=== PATIENT | male | born 1960 ===

== ENCOUNTER 2025-01-28 11:41 | Emergency (ER) | payer MEDICARE, OTHER, SELFPAY ==
--- OUTSIDE RECORDS SUMMARY | 2025-01-26 13:00 | XMS_ITS | Encounter Summary ---
Author Organization [facility] Address [address] [place] [address] Care Team Providers Care Associate Professor Of Radiology Name Role Phone Jabari Lemon MD Primary Care Provider [phone] Encounter Details Date Type Department Care Team (Latest Contact Info) Description 01/26/2025 1:00 PM BUNDLE BREAKER - 01/26/2025 11:59 PM BUNDLE BREAKER Hospital Encounter [facility] [place] [address] [facility] [address] [place] [phone] Blossom Sarmiento, [facility] [address] [facility] [address] [place] [phone] Discharge Disposition: Home or Self Care Social History Tobacco Use Types Packs/Day Years Used Date Smoking Tobacco: Former Cigarettes Smokeless Tobacco: Never Alcohol Use Standard Drinks/Week Comments No 0 (1 standard drink = 0.6 oz pur e alcohol) Sex and Gender Information Value Date Recorded Sex Assigned at Not on file Legal Sex Male 11:50 PM BUNDLE BREAKER Gender Identity Not on file Sexual Orientation Not on file documented as of this encounter Medications at Time of Discharge ALPRAZolam (XANAX) 0.5 mg tabletIndications :RUSSEL (generalized anxiety disorder) TAKE 1 TABLET BY MOUTH THREE TIMES DAILY NEEDED FOR ANXIETY 90 Tablet 5 01/06/2025 citalopram (CeleXA) 20 mg tabletIndications :RUSSEL (generalized anxiety disorder) Take 1.5 Tablets (30 mg) by mouth daily. 135 Tablet 3 04/28/2024 triamcinolone acetonide (KENALOG) 0.5 % CreamIndications: Psoriasis Apply to affected area 2 times daily. 15 Gram 2 07/31/2021 Calcitriol 3 mcg/gram Ointment Apply twice daily to affected areas 100 Gram 5 11/24/2020 triamcinolone acetonide (KENALOG) 0.1 % OintmentIndicatio ns:Psoriasis APPLY TO AFFECTED AREA TWO TIMES DAILY 80 Gram 10/12/2020 nystatin-triamcin olone (MYCOLOG-II) 100,000-0.1 unit/g-% CreamIndications: Intertrigo APPLY TO AFFECTED AREA TWICE DAILY 30 Gram 1 09/30/2020 loratadine-pseudo ephedrine (Claritin-D 12 Hour) 5-120 mg Extended Release 12 hour tablet Take 1 Tablet by mouth 2 times daily as needed for Allergies or Congestion. 30 Tablet 1 01/26/2020 silver nitrate applicators 75-25 % Stick Apply to granulation tissue on L great toe daily as needed. 50 Stick 1 09/04/2019 cyclobenzaprine (FLEXERIL) 5 mg TabletIndications :Neck pain Take 1 Tablet (5 mg) by mouth daily at bedtime for 3 days. 3 Tablet 01/26/2025 5 documented as of this encounter Plan of Treatment Upcoming Encounters Date Type Department Care Team (Late st Contact Info) Description 08/26/2025 8:00 AM CDT Office Visit [facility] Medicine [place] [address] [phone] Jabari Lemon MD [address] [phone] documented as of this encounter Visit Diagnoses Not on filedocumented in this encounter Care Teams Associate Professor Of Radiology Relationship Specialty Start Date End Date Jabari Lemon MD [address] [phone] PCP - General Family Practice 12/26/15 documented as of this encounter
--- OUTSIDE RECORDS SUMMARY | 2025-01-26 13:03 | XMS_ITS | Encounter Summary ---
Author Organization [employer] Address [address] [place] [address] Care Team Providers Care Brush Hand Name Role Phone Jabari Lemon MD Primary Care Provider [phone] Encounter Details Date Type Department Care Team (Latest Contact Info) Description 01/26/2025 1:03 PM MANAGER DAIRY - 01/26/2025 11:59 PM MANAGER DAIRY Hospital Encounter [facility] [address] [facility] 60 [place] [phone] Blossom Sarmiento, [facility] 104 [facility] 60 [place] [phone] Arrived Discharge Disposition: Home or Self Care Social History Tobacco Use Types Packs/Day Years Used Date Smoking Tobacco: Former Cigarettes Smokeless Tobacco: Never Alcohol Use Standard Drinks/Week Comments No 0 (1 standard drink = 0.6 oz pur e alcohol) Sex and Gender Information Value Date Recorded Sex Assigned at Not on file Legal Sex Male 11:50 PM MANAGER DAIRY Gender Identity Not on file Sexual Orientation [...] bedtime for 3 days. 3 Tablet 01/26/2025 documented as of this encounter Plan of Treatment Upcoming Encounters Date Type Department Care Team (Late st Contact Info) Description 08/26/2025 8:00 AM CDT Office Visit [address] [phone] Jabari Lemon MD [address] [phone] documented as of this encounter Procedures Procedure Name Priority Date/Time Associated Diagnosis Comments XR CERVICAL SPINE 2 OR 3 VIEWS Routine 01/26/2025 1:34 PM MANAGER DAIRY Neck pain documented in this encounter Results * XR CERVICAL SPINE 2 OR 3 VIEWS (01/26/2025 1:34 PM MANAGER DAIRY) Anatomical Region Laterality Modality Spine Computed Radiogr aphy 01/26/2025 1:34 PM MANAGER DAIRY Impressions 01/27/2025 7:45 AM MANAGER DAIRY IMPRESSION: No radiographically evident cervical spine fractures. Mild retrolisthesis of C4 on C5. Cervical spine degenerative changes with multilevel mild disc space narrowing. Remainder unremarkable. Narrative 01/27/2025 7:45 AM MANAGER DAIRY Exam: Radiographs: XR CERVICAL SPINE 2 OR 3 VIEWS Indication: Neck pain Comparison: None Procedure Note Nas Brown MD - 01/27/2025 Exam: Radiographs: XR CERVICAL SPINE 2 OR 3 VIEWS Indication: Neck pain Comparison: None IMPRESSION: No radiographically evident cervical spine fractures. Mild retrolisthesis of C4 on C5. Cervical spine degenerative changes with multilevel mild disc space narrowing. Remainder unremarkable. Blossom Sarmiento MAIL CARRIERS SUPERVISOR DIAGNOSTIC IMAGING ORDERAB LES Final Result documented in this encounter Visit Diagnoses Diagnosis Neck pain Cervicalgia documented in this encounter Care Teams Brush Hand Relationship Specialty Start Date End Date Jabari Lemon MD [address] [facility] 60 [place] [phone] PCP - General Family Practice 12/26/15 documented as of this encounter
--- OUTSIDE RECORDS SUMMARY | 2025-01-26 14:00 | XMS_ITS | Encounter Summary ---
Author Organization [facility] Address [address] [place] [address] Care Team Providers Care Universal Grinder Tool Name Role Phone Jabari Lemon MD Primary Care Provider [phone] Reason for Visit * Reason Comments Neck Pain Encounter Details Date Type Department Care Team (Late st Contact Info) Description 01/26/2025 2:00 PM GEOLOGICAL SCIENCE TEACHER Office Visit [facility] Medicine [place] [address] [phone] Blossom Sarmiento, [facility] [address] [phone] Neck pain (Primary Dx) Social History Tobacco Use Types Packs/Day Years Used Date Smoking Tobacco: Former Cigarettes Smokeless Tobacco: Never Alcohol Use Standard Drinks/Week Comments No 0 (1 standard drink = 0.6 oz pur e alcohol) Sex and Gender Information Value Date Recorded Sex Assigned at Not on file Legal Sex Male 11:50 PM GEOLOGICAL SCIENCE TEACHER Gender Identity Not on file Sexual Orientation Not on file documented as of this encounter Last Filed Vital Signs Vital Sign Reading Time Taken Comments Blood Pressure 110/62 01/26/2025 12:40 PM GEOLOGICAL SCIENCE TEACHER Pulse 72 01/26/2025 12:40 PM GEOLOGICAL SCIENCE TEACHER Temperature 36.1 C (96.9 F) 01/26/2025 12:40 PM GEOLOGICAL SCIENCE TEACHER Respiratory Rate - - Oxygen Saturation 98% 01/26/2025 12:40 PM GEOLOGICAL SCIENCE TEACHER Inhaled Oxygen Concentration - - Weight 84.9 kg (187 lb 3.2 oz) 01/26/2025 12:40 PM GEOLOGICAL SCIENCE TEACHER Height 175.3 cm (5' 9 ) 01/26/2025 12:40 PM GEOLOGICAL SCIENCE TEACHER Body Mass Index 27.64 01/26/2025 12:40 PM GEOLOGICAL SCIENCE TEACHER documented in this encounter Progress Notes * Guillermina Blossom Jessa, CAD OPERATOR - 01/26/2025 12:55 PM CST [facility] 01/26/2025 Subjective: Aníbal Prakash is a 64 y.o. male who comes today for evaluation of No chief complaint on file. . History of Present Illness The patient presents for evaluation of neck pain. He has been experiencing severe bilateral neck pain for several days, (has had for months, but has worsened the past few days) which is particularly intense upon awakening in the morning. The pain isdescribed as similar to a migraine but localized in the neck. Additionally, he reports intermittentpressure behind his eyes and extreme fatigue over the past week. He has also experienced occasional chills but has not monitored his temperature at home. He reports no numbness, tingling, nausea, vomiting, new rashes, or changes in vision. He does report muscle weakness, which he attributes to his current condition. Attempts to alleviate the pain through neck stretching exercises, as recommended by his chiropractor, have only exacerbated the discomfort. He has not undergone any cervical spine imaging in the past. He has been managing the pain with ibuprofen, with the most recent dose taken anhour prior to the visit. Review of Systems Constitutional: Negative for chills, fever and malaise/fatigue. HENT: Negative for congestion, ear pain and sore throat. Eyes: Negative for blurred vision. Respiratory: Negative for cough and shortness of breath. Cardiovascular: Negative for chest pain. Gastrointestinal: Negative for abdominal pain, constipation, diarrhea, nausea and vomiting. Genitourinary: Negative for dysuria and urgency. Musculoskeletal: Positive for neck pain. Negative for joint pain and myalgias. Neurological: Negative for dizziness, tingling, tremors, sensory change, focal weakness, weakness and headaches. All other systems reviewed and are negative. Objective: Vitals: 01/26/25 1240 Temp: 96.9 ??F (36.1 ??C) Pulse: 72 BP: 110/62 SpO2: 98% Physical Exam Constitutional: General: He is not in acute distress. Appearance: Normal appearance. He is not ill-appearing or toxic-appearing. HENT: Head: Normocephalic and atraumatic. Right Ear: Tympanic membrane normal. Left Ear: Tympanic membrane normal. Nose: Nose normal. Mouth/Throat: Mouth: Mucous membranes are moist. Eyes: Extraocular Movements: Extraocular movements intact. Pupils: Pupils are equal, round, and reactive to light. Cardiovascular: Rate and Rhythm: Normal rate and regular rhythm. Pulses: Normal pulses. Heart sounds: Normal heart sounds. Pulmonary: Effort: Pulmonary effort is normal. No respiratory distress. Breath sounds: Normal breath sounds. No decreased air movement. No decreased breath sounds, wheezing, rhonchi or rales. Abdominal: General: Abdomen is flat. Palpations: Abdomen is soft. Tenderness: There is no abdominal tenderness. There is no guarding. Musculoskeletal: Cervical back: Neck supple. No edema, erythema, signs of trauma, rigidity or crepitus. Pain with movement and muscular tenderness present. Decreased range of motion. Skin: General: Skin is warm and dry. Neurological: General: No focal deficit present. Mental Status: He is alert and oriented to person, place, and time. Psychiatric: Mood and Affect: Mood normal. Behavior: Behavior normal. Past medical history, surgical history and social history reviewed. Past Medical History: Diagnosis Date Anxiety RUSSEL (generalized anxiety disorder) Tobacco abuse Procedures Assessment/Plan: ICD-10-CM ICD-9-CM 1. Neck pain M54.2 723.1 CBC WITH DIFFERENTIAL COMPREHENSIVE METABOLIC PANEL C-REACTIVE PROTEIN XR CERVICAL SPINE 2 OR 3 VIEWS ketorolac (TORADOL) injection 30 mg cyclobenzaprine (FLEXERIL) 5 mg Tablet Assessment & Plan 1. Cervicalgia: - The patient reports neck pain, particularly severe in the mornings, with associated pressure behind the eyes and worsening with movement. - Ibuprofen provides some relief, but the pain persists and worsens with stretching. - Blood work and a cervical spine x-ray are ordered to rule out emergent conditions. A Toradol injection will be administered today, and a muscle relaxer will be prescribed for nightly use for three nights. - The patient is instructed to monitor his temperature at home and report any fevers, worsening symptoms, rash, vomiting, or other concerning signs. If symptoms do not improve, further diagnostic workup will be pursued. Blossom SUAREZ This note was automatically generated by a Generative AI technology (Dragon [employer]ient e[employer]), reviewed, edited, and finalized by Blossom Sarmiento. The author of this note, patient (or authorized customer operations representative), and all other persons present consent to the audio recording of this visit for charting documentation purposes. OGICAL SCIENCE TEACHER documented in this encounter Plan of Treatment Upcoming Encounters Date Type Department Care Team (Late st Contact Info) Description 08/26/2025 8:00 AM CDT Office Visit [facility] [address] [phone] Jabari Lemon MD [address] [phone] documented as of this encounter Results * XR CERVICAL SPINE 2 OR 3 VIEWS (01/26/2025 1:34 PM GEOLOGICAL SCIENCE TEACHER) Anatomical Region Laterality Modality Spine Computed Radiogr aphy 01/26/2025 1:34 PM GEOLOGICAL SCIENCE TEACHER Impressions 01/27/2025 7:45 AM GEOLOGICAL SCIENCE TEACHER IMPRESSION: No radiographically evident cervical spine fractures. Mild retrolisthesis of C4 on C5. Cervical spine degenerative changes with multilevel mild disc space narrowing. Remainder unremarkable. Narrative 01/27/2025 7:45 AM GEOLOGICAL SCIENCE TEACHER Exam: Radiographs: XR CERVICAL SPINE 2 OR 3 VIEWS Indication: Neck pain Comparison: None Procedure Note Nas Brown MD - 01/27/2025 Exam: Radiographs: XR CERVICAL SPINE 2 OR 3 VIEWS Indication: Neck pain Comparison: None IMPRESSION: No radiographically evident cervical spine fractures. Mild retrolisthesis of C4 on C5. Cervical spine degenerative changes with multilevel mild disc space narrowing. Remainder unremarkable. Blossom GANDHI DIAGNOSTIC IMAGING ORDERAB LES Final Result documented in this encounter Visit Diagnoses Diagnosis Neck pain- Primary Cervicalgia Neck pain Cervicalgia documented in this encounter Administered Medications Inactive Administered Medications - up to 3 most recent administrations Medication Order MAR Action Action Date Dose Rate Site ketorolac (TORADOL) injection 30 mg 30 mg, IM, ONE TIME ONLY, 1 dose, On 11/4/25 at 1300, RoutineIndications:Neck pain Given 01/26/2025 1:00 PM GEOLOGICAL SCIENCE TEACHER 30 mg Ventrogluteal, Left documented in this encounter Care Teams Universal Grinder Tool Relationship Specialty Start Date End Date Jabari Lemon MD [address] [phone] PCP - General Family Practice 12/26/15 documented as of this encounter
[2025-01-28 11:46] VITALS: BP 132/73; PULSE 93; RESP 17; TEMP 36.7; O2SAT 98; BMI 25.8
--- OUTSIDE RECORDS SUMMARY | 2025-01-28 11:50 | XMS_ITS | Clinical Summary ---
Author Organization [facility] Address 104 [facility] 60 [place] [address] Care Team Providers Care Engineering Research Manager Name Role Phone Jabari Lemon MD Primary Care Provider [phone] [phone] Allergies No known active allergies Medications triamcinolone acetonide (KENALOG) 0.1 % OintmentIndication s:Psoriasis APPLY TO AFFECTED AREA TWO TIMES DAILY 80 Gram 1 03/19/20 18 Active nystatin-triamcino lone (MYCOLOG-II) 100,000-0.1 unit/g-% CreamIndications:I ntertrigo Apply to affected area 2 times daily. 30 Gram 1 05/14/19 20 Active silver nitrate applicators 75-25 % Stick Apply to granulation tissue on L great toe daily as needed. 50 Stick 1 09/04/19 20 Active loratadine-pseudoe phedrine (Claritin-D 12 Hour) 5-120 mg Extended Release 12 hour tablet Take 1 Tablet by mouth 2 times daily as needed for Allergies or Congestion. 30 Tablet 1 01/26/20 20 Active citalopram (CeleXA) 20 mg tabletIndications: RUSSEL (generalized anxiety disorder) Take 1.5 Tablets (30 mg) by mouth daily. 135 Tablet 4 05/05/19 21 Active ALPRAZolam (XANAX) 0.5 mg tabletIndications: RUSSEL (generalized anxiety disorder) Take 1 Tablet (0.5 mg) by mouth 3 times daily as needed for Anxiety. 90 Tablet 5 05/05/19 21 Active omeprazole (PriLOSEC) 40 mg Capsule, Delayed Release(E.C.)Indic ations:Gastroesoph ageal reflux disease without esophagitis Take 1 Capsule (40 mg) by mouth daily. 90 Capsule 4 05/05/19 21 Active lovastatin (MEVACOR) 20 mg tabletIndications: Mixed hyperlipidemia Take 1 Tablet (20 mg) by mouth daily with supper. 30 Tablet 11 08/14/19 21 Active Active Problems Problem Noted Date Diagnosed Date Gastroesophageal reflux disease without esophagi tis 05/05/2020 Mixed hyperlipidemia 05/14/2019 History of esophageal stricture 04/12/2016 Oropharyngeal dysphagia 04/12/2016 History of lipoma 04/04/2016 Pharyngoesophageal dysphagia 01/20/2016 Psoriasis 12/28/2013 RUSSEL (generalized anxiety disorder) 10/29/2008 Resolved Problems Problem Noted Date Diagnosed Date Resolved Date Screen for colon cancer 02/26/201704/25 Mass of subcutaneous tissue of back 03/07/2016 03/27/2016 Overview (03/07/2016): growing. Tobacco abuse 10/29/2008 05/05/2020 Overview (09/16/2012): 1 ppd (09/04) Family History Medical History Relation Name Comments Other Father ALS Unknown Maternal Grandfather Unknown Maternal Grandmother Healthy Mother Unknown Paternal Grandfather Unknown Paternal Grandmother Breast Cancer Neg Hx Cancer Neg Hx Colon Cancer Neg Hx Diabetes Neg Hx Heart Disease Neg Hx Relation Name Status Comments Father Maternal Grandfather Maternal Grandmother Mother Paternal Grandfather Paternal Grandmother Social History Tobacco Use Types Packs/Day Years Used Date Smoking Tobacco: Former Cigarettes 1 30 Smokeless Tobacco: Never Tobacco Cessation:Counseling Given: No Alcohol Use Standard Drinks/Week Comments No 0 (1 standard drink = 0.6 oz pur e alcohol) Denies Sex and Gender Information Value Date Recorded Sex Assigned at Not on file Legal Sex Male 7:23 AM PROFESSOR OF FINE ART Gender Identity Not on file Sexual Orientation Not on file Occupation Industry Job Start Date Job End Date Not on file Not on file Not on file Not on file Last Filed Vital Signs Vital Sign Reading Time Taken Comments Blood Pressure 118/68 05/05/2020 2:54 PM PROFESSOR OF FINE ART Pulse 85 05/05/2020 2:54 PM PROFESSOR OF FINE ART Temperature 36.3 C (97.3 F) 05/05/2020 2:54 PM PROFESSOR OF FINE ART Respiratory Rate 16 05/05/2020 2:54 PM PROFESSOR OF FINE ART Oxygen Saturation 99% 05/05/2020 2:54 PM PROFESSOR OF FINE ART Inhaled Oxygen Concentration - - Weight 91.2 kg (201 lb) 05/05/2020 2:54 PM PROFESSOR OF FINE ART Height 177.8 cm (5' 10 ) 05/05/2020 2:54 PM PROFESSOR OF FINE ART Body Mass Index 28.84 05/05/2020 2:54 PM PROFESSOR OF FINE ART Plan of Treatment Health Maintenance Due Date Last Done Comments Pre-Diabetes and Diabetes Screening 1960 DTAP/TDAP/TD VACCINES (1 - Tdap) 07/25/1978 FIT-DNA Q 3 years 07/25/2004 FIT/FOBT Q 1 year 07/25/2004 Flex Sig/CT Colonography Q 5 years 07/25/2004 PNEUMOCOCCAL VACCINE 50+ YEA RS (1 of 1 - PCV) 07/25/2009 ZOSTER VACCINE (1 of 2) 07/25/2009 INFLUENZA VACCINE (#1) 2024 05/05/2020 COLORECTAL SCREENING 02/26/2027 02/26/2017 Colorectal Cancer Screening 02/26/2027 RSV VACCINE (60+ or ) (1 - 1-dose 75+ series) 07/25/2034 Preventative Visit- Commercial Completed 04/28/2024 , 10/01/2022 Insurance [employer] [facility] [place] [id number] Advance Directives For more information, please contact: [phone] * Full Code (Latest Code Status on File) Date Activated Date Inactivated Comments 02/26/2017 1:00 PM 02/26/2017 4:23 PM * Full Code Date Activated Date Inactivated Comments 03/27/2016 10:58 AM 03/27/2016 2:56 PM Care Teams Engineering Research Manager Relationship Specialty Start Date End Date Jabari Lemon MD [address] [phone] PCP - General Family Practice 12/26/15
--- OUTSIDE RECORDS SUMMARY | 2025-01-28 11:50 | XMS_ITS | Clinical Summary ---
Author Organization [facility] Address [address] [facility] [address] [place] [address] Care Team Providers Care Field Crop Farmer Name Role Phone Jabari Lemon MD Primary Care Provider [phone] Allergies No known active allergies Medications loratadine-pse udoephedrine (Claritin-D 12 Hour) 5-120 mg Extended Release 12 hour tablet Take 1 Tablet by mouth 2 times daily as needed for Allergies or Congestion. 30 Tablet 1 01/26/20 20 Active silver nitrate applicators 75-25 % Stick Apply to granulation tissue on L great toe daily as needed. 50 Stick 1 09/04/19 20 Active nystatin-triam cinolone (MYCOLOG-II) 100,000-0.1 unit/g-% CreamIndicatio ns:Intertrigo APPLY TO AFFECTED AREA TWICE DAILY 30 Gram 1 10/01/19 21 Active triamcinolone acetonide (KENALOG) 0.1 % OintmentIndica tions:Psoriasi s APPLY TO AFFECTED AREA TWO TIMES DAILY 80 Gram 10/13/19 21 Active Calcitriol 3 mcg/gram Ointment Apply twice daily to affected areas 100 Gram 5 11/25/19 21 Active triamcinolone acetonide (KENALOG) 0.5 % CreamIndicatio ns:Psoriasis Apply to affected area 2 times daily. 15 Gram 2 08/01/19 22 Active citalopram (CeleXA) 20 mg tabletIndicati ons:RUSSEL (generalized anxiety disorder) Take 1.5 Tablets (30 mg) by mouth daily. 135 Tablet 3 04/28/19 25 Active ALPRAZolam (XANAX) 0.5 mg tabletIndicati ons:RUSSEL (generalized anxiety disorder) TAKE 1 TABLET BY MOUTH THREE TIMES DAILY NEEDED FOR ANXIETY 90 Tablet 5 01/07/20 25 Active cyclobenzaprin e (FLEXERIL) 5 mg TabletIndicati ons:Neck pain Take 1 Tablet (5 mg) by mouth daily at bedtime for 3 days. 3 Tablet 01/28/20 25 025 Active ALPRAZolam (XANAX) 0.5 mg tabletIndicati ons:RUSSEL (generalized anxiety disorder) Take 1 Tablet (0.5 mg) by mouth 3 times daily as needed for Anxiety. 90 Tablet 5 06/09/19 25 025 Discontinued cyclobenzaprin e (FLEXERIL) 5 mg TabletIndicati ons:Neck pain Take 1 Tablet (5 mg) by mouth daily at bedtime for 3 days. 3 Tablet 01/27/20 25 025 Discontinued(R ora) Hospital, Clinic, or Other Facility Administered Medication Ordered Dose Route Frequency Start Date End Date Status ketorolac (TORADOL) injection 30 mgIndications:Neck pain 30 mg IM ONE TIME ONLY 01/26/2025 5 Ended Active Problems Problem Noted Date Diagnosed Date Essential tremor 04/18/2023 Gastroesophageal reflux disease without esophagi tis 05/05/2020 Mixed hyperlipidemia 05/14/2019 Oropharyngeal dysphagia 04/12/2016 History of esophageal stricture 04/12/2016 History of lipoma 04/04/2016 Pharyngoesophageal dysphagia 01/20/2016 Psoriasis 12/28/2013 RUSSEL (generalized anxiety disorder) 10/29/2008 Resolved Problems Problem Noted Date Diagnosed Date Resolved Date Screen for colon cancer 02/26/201704/25 Mass of subcutaneous tissue of back 03/07/2016 03/27/2016 Overview (07/20/2020): growing. Tobacco abuse 10/29/2008 05/05/2020 Overview (07/20/2020): 1 ppd (09/04) Encounters Date Type Department Care Team Description 01/27/[address] [address] Blossom Sarmiento FNP Medication Refill 01/27/2025 Results Follow-Up [facility] [address] [place] [phone] Blossom Sarmiento, TECHNICIAN TERMINAL AND REPEATER XR CERVICAL SPINE 2 OR 3 VIEWS 01/27/2025 Results Follow-Up [facility] [address] [place] [phone] Blossom Sarmiento, TECHNICIAN TERMINAL AND REPEATER CBC WITH DIFFERENTIAL, COMPREHENSIVE METABOLIC PANEL, C-REACTIVE PROTEIN, MANUAL DIFFERENTIAL 01/26/2025 2:00 PM CRYPTOGRAPHIC MACHINE OPERATOR Office Visit [address] [place] [phone] Blossom Sarmiento, OKSANA Neck pain (Primary Dx) 01/26/2025 1:03 PM CRYPTOGRAPHIC MACHINE OPERATOR - 01/26/2025 11:59 PM CRYPTOGRAPHIC MACHINE OPERATOR Hospital Encounter [facility] [address] [place] [phone] Blossom Sarmiento FNP Arrived Discharge Disposition: Home or Self Care 01/26/2025 1:00 PM CRYPTOGRAPHIC MACHINE OPERATOR - 01/26/2025 11:59 PM CRYPTOGRAPHIC MACHINE OPERATOR Hospital Encounter [facility] [place] [address] [place] [phone] Blossom Sarmiento, TECHNICIAN TERMINAL AND REPEATER Discharge Disposition: Home or Self Care 01/26/2025 Lab Requisition [facility] [address] [place] [address] Blossom Sarmiento, TECHNICIAN TERMINAL AND REPEATER Cervicalgia 01/05/2025 Refill [facility] [address] [place] [phone] Jabari Lemon MD RUSSEL (generalized anxiety disorder) 12/23/2024 Results Follow-Up [address] [place] [phone] Farnaz Sky, TECHNICIAN TERMINAL AND REPEATER PSA, LIPID PANEL, COMPREHENSIVE METABOLIC PANEL, CBC WITH DIFFERENTIAL 12/08/2024 External Device Data [facility] ABSTRACTION Provider, Abstract 11/30/[address] [address] Jabari Lemon MD Referral (GI Referral/) 11/18/2024 Orders Only [address] [address] Jabari Lemon MD History of esophageal stricture (Primary Dx); Gastroesophageal reflux disease without esophagitis 11/18/2024 Orders Only [address] [address] Jabari Lemon MD 11/17/[address] [address] Jabari Lemon MD Referral 11/05/[address] [address] Jabari Lemon MD Referral; Patient Communication from Last 3 Months Family History Medical History Relation Name Comments [...] on file Legal Sex Male 11:50 PM CRYPTOGRAPHIC MACHINE OPERATOR Gender Identity Not on file Sexual Orientation Not on file Last Filed Vital Signs Vital Sign Reading Time Taken Comments Blood Pressure 110/62 01/26/2025 12:40 PM CRYPTOGRAPHIC MACHINE OPERATOR Pulse 72 01/26/2025 12:40 PM CRYPTOGRAPHIC MACHINE OPERATOR Temperature 36.1 C (96.9 F) 01/26/2025 12:40 PM CRYPTOGRAPHIC MACHINE OPERATOR Respiratory Rate 18 08/24/2024 3:11 PM CDT Oxygen Saturation 98% 01/26/2025 12:40 PM CRYPTOGRAPHIC MACHINE OPERATOR Inhaled Oxygen Concentration - - Weight 84.9 kg (187 lb 3.2 oz) 01/26/2025 12:40 PM CRYPTOGRAPHIC MACHINE OPERATOR Height 175.3 cm (5' 9 ) 01/26/2025 12:40 PM CRYPTOGRAPHIC MACHINE OPERATOR Body Mass Index 27.64 01/26/2025 12:40 PM CRYPTOGRAPHIC MACHINE OPERATOR Plan of Treatment Upcoming Encounters Date Type Department Care Team (Late st Contact Info) Description 08/26/2025 8:00 AM CDT Office Visit [facility] [address] [phone] Jabari Lemon MD [address] [address] Health Maintenance Due Date Last Done Comments Pre-Diabetes and Diabetes Screening 1960 FIT/ DNA Q 3 YEARS (AUTO ORDER) 07/25/1977 FIT/FOBT Q 1 YEAR (AUTO ORDER) 07/25/1977 FLEX SIG/CT COLONOGRAPHY Q 5 YEARS (AUTO ORDER) 07/25/1977 DTAP/TDAP/TD VACCINES (1 - Tdap) 07/25/1978 FIT-DNA Q 3 years 07/25/2004 FIT/FOBT Q 1 year 07/25/2004 Flex Sig/CT Colonography Q 5 years 07/25/2004 PNEUMOCOCCAL VACCINE 50+ YEA RS (1 of 1 - PCV) 07/25/2009 ZOSTER VACCINE (1 of 2) 07/25/2009 Abdominal Aortic Aneurysm (AAA) Screening 07/25/2024 INFLUENZA VACCINE (#1) 2024 04/28/2024, 2020 Traditional Medicare (ACO) A nnual Wellness Visit 08/25/2025 08/24/2024 COLORECTAL CANCER SCREENING (AUTO ORDER) 02/26/2027 02/26/2017 COLORECTAL SCREENING 02/26/2027 02/26/2017 Colorectal Cancer Screening (AUTO ORDER) 02/26/2027 Colorectal Cancer Screening 02/26/2027 RSV VACCINE (60+ or ) (1 - 1-dose 75+ series) 07/25/2034 Procedures Procedure Name Priority Date/Time Associated Diagnosis Comments XR CERVICAL SPINE 2 OR 3 VIEWS Routine 01/26/2025 1:34 PM CRYPTOGRAPHIC MACHINE OPERATOR Neck pain DIFFERENTIAL, MANUAL Stat 01/26/2025 1:15 PM CRYPTOGRAPHIC MACHINE OPERATOR Cervicalgia C-REACTIVE PROTEIN Stat 01/26/2025 1: 15 PM CRYPTOGRAPHIC MACHINE OPERATOR Cervicalgia COMPREHENSIVE METABOLIC PANEL Stat 01/26/2025 1:15 PM CRYPTOGRAPHIC MACHINE OPERATOR Cervicalgia CBC WITH DIFFERENTIAL Stat 01/26/2025 1:15 PM CRYPTOGRAPHIC MACHINE OPERATOR Cervicalgia CBC WITH DIFFERENTIAL Routine 12/07/2024 10:51 AM CDT Mixed hyperlipidemia COMPREHENSIVE METABOLIC PANEL Routine 12/07/2024 10:51 AM CDT Mixed hyperlipidemia LIPID PANEL Routine 12/07/2024 10:51 AM CDT Mixed hyperlipidemia PSA Routine 12/07/2024 10:51 AM CDT Elevated PSA from Last 3 Months Results * XR CERVICAL SPINE 2 OR 3 VIEWS (01/26/2025 1:34 PM CRYPTOGRAPHIC MACHINE OPERATOR) Anatomical Region Laterality Modality Spine Computed Radiogr aphy 01/26/2025 1:34 PM CRYPTOGRAPHIC MACHINE OPERATOR Impressions 01/27/2025 7:45 AM CRYPTOGRAPHIC MACHINE OPERATOR IMPRESSION: No radiographically evident cervical spine fractures. Mild retrolisthesis of C4 on C5. Cervical spine degenerative changes with multilevel mild disc space narrowing. Remainder unremarkable. Narrative 01/27/2025 7:45 AM CRYPTOGRAPHIC MACHINE OPERATOR Exam: Radiographs: XR CERVICAL SPINE 2 OR 3 VIEWS Indication: Neck pain Comparison: None Procedure Note Nas Brown MD - 01/27/2025 Exam: Radiographs: XR CERVICAL SPINE 2 OR 3 VIEWS Indication: Neck pain Comparison: None IMPRESSION: No radiographically evident cervical spine fractures. Mild retrolisthesis of C4 on C5. Cervical spine degenerative changes with multilevel mild disc space narrowing. Remainder unremarkable. Blossom Sarmiento TECHNICIAN TERMINAL AND REPEATER DIAGNOSTIC IMAGING ORDERAB LES Final Result * MANUAL DIFFERENTIAL (01/26/2025 1:15 PM CRYPTOGRAPHIC MACHINE OPERATOR) PLATELET EST. Consistent w Count 01/26/2025 1:43 PM [facility] RBC MORPHOLOGY Normal 01/26/2025 1:43 PM [facility] Blood 01/26/2025 1:15 PM CRYPTOGRAPHIC MACHINE OPERATOR 01/26/2025 1:28 PM CRYPTOGRAPHIC MACHINE OPERATOR [facility] - 01/26/2025 1:43 PM CRYPTOGRAPHIC MACHINE OPERATOR Smear reviewed. Findings consistent with automated results. Blossom Sarmiento [facility] HEMATOLOGY ORDERABLES COM Final Result [facility] CLIA # [id number] [address] [place] [address] * (ABNORMAL) CBC WITH DIFFERENTIAL (01/26/2025 1:15 PM CRYPTOGRAPHIC MACHINE OPERATOR) Only the most recent of2 resultswithin the time period is included. [facility] WBC 3.6(L) 4.2 - 9.1 K/uL 01/26/2025 1:43 PM [facility] RBC 4.86 4.63 - 6.08 M/uL 01/26/2025 1:43 PM [facility] HEMOGLOBIN 13.8 13.7 - 17.5 g/dL 01/26/2025 1:43 PM [facility] HEMATOCRIT 40.1 40.1 - 51.0 % 01/26/2025 1:43 PM [facility] MCV 82.5 79.0 - 92.2 fL 01/26/2025 1:43 PM [facility] MCH 28.4 25.7 - 32.2 pg 01/26/2025 1:43 PM [facility] MCHC 34.4 32.3 - 36.5 g/dL 01/26/2025 1:43 PM [facility] RDW 12.7 11.0 - 14.5 % 01/26/2025 1:43 PM [facility] RDW-STDEV 38.6 36.9 - 56.9 fL 01/26/2025 1:43 PM [facility] PLATELETS 145 130 - 400 K/uL 01/26/2025 1:43 PM [facility] MPV 10.4 10.0 - 14.8 fL 01/26/2025 1:43 PM [facility] NEUTROPHILS 43 34 - 68 % 01/26/2025 1:43 PM [facility] LYMPHOCYTES 38 22 - 53 % 01/26/2025 1:43 PM [facility] MONOCYTES 13(H) 5 - 12 % 01/26/2025 1:43 PM [facility] EOSINOPHILS 0(L) 1 - 7 % 01/26/2025 1:43 PM [facility] BASOPHILS 1 0 - 1 % 01/26/2025 1:43 PM [facility] IMMATURE GRANULOCYTES 4 % 01/26/2025 1:43 PM [facility] NEUTROPHIL ABSOLUTE 1.57(L) 1.78 - 5.38 K/uL 01/26/2025 1:43 PM [facility] LYMPHOCYTE ABSOLUTE 1.38 1.20 - 3.40 K/uL 01/26/2025 1:43 PM [facility] MONOCYTE ABSOLUTE 0.48 0.30 - 0.82 K/uL 01/26/2025 1:43 PM [facility] EOSINOPHIL ABSOLUTE 0.01(L) 0.04 - 0.54 K/uL 01/26/2025 1:43 PM [facility] BASOPHILS ABSOLUTE 0.05 0.01 - 0.08 K/uL 01/26/2025 1:43 PM [facility] IMMATURE GRANULOCYTES ABSOLUTE 0.15 K/uL 01/26/2025 1:43 PM [facility] Blood 01/26/2025 1:15 PM CRYPTOGRAPHIC MACHINE OPERATOR 01/26/2025 1:28 PM CRYPTOGRAPHIC MACHINE OPERATOR us Blossom Sarmiento TECHNICIAN TERMINAL AND REPEATER HEMATOLOGY ORDERABLES Sonal bueno [id number] [address] [place] [address] * (ABNORMAL) C-REACTIVE PROTEIN (01/26/2025 1:15 PM CRYPTOGRAPHIC MACHINE OPERATOR) Pathologist [facility] CRP 46.4(H) <5.0 mg/L 01/26/2025 1:51 PM [facility] Blood 01/26/2025 1:15 PM CRYPTOGRAPHIC MACHINE OPERATOR 01/26/2025 1:28 PM CRYPTOGRAPHIC MACHINE OPERATOR Blossom Sarmiento TECHNICIAN TERMINAL AND REPEATER CHEMISTRY ORDERABLES Final Result [facility] CLIA # [id number] [address] [place] [address] * (ABNORMAL) COMPREHENSIVE METABOLIC PANEL (01/26/2025 1:15 PM CRYPTOGRAPHIC MACHINE OPERATOR) Only the most recent of2 resultswithin the time period is included. Pathologist [facility] SODIUM 133(L) 136 - 145 mmol/L 01/26/2025 1:51 PM [facility] POTASSIUM 3.9 3.5 - 5.1 mmol/L 01/26/2025 1:51 PM [facility] CHLORIDE 96(L) 98 - 107 mmol/L 01/26/2025 1:51 PM [facility] CO2 28 22 - 29 mmol/L 01/26/2025 1:51 PM [facility] CALCIUM 8.6(L) 8.8 - 10.2 mg/dL 01/26/2025 1:51 PM [facility] BUN 11 8 - 23 mg/dL 01/26/2025 1:51 PM [facility] CREATININE 1.17 0.67 - 1.17 mg/dL 01/26/2025 1:51 PM [facility] GLUCOSE 105(H) 74 - 99 mg/dL 01/26/2025 1:51 PM [facility] TOTAL PROTEIN 6.3(L) 6.6 - 8.7 g/dL 01/26/2025 1:51 PM [facility] ALBUMIN 3.9 3.5 - 5.2 g/dL 01/26/2025 1:51 PM [facility] BILIRUBIN TOTAL 0.7 0.0 - 1.2 mg/dL 01/26/2025 1:51 PM [facility] ALKALINE PHOSPHATASE 102 40 - 129 U/L 01/26/2025 1:51 PM [facility] AST 39 0 - 50 U/L 01/26/2025 1:51 PM [facility] ALT 42 0 - 50 U/L 01/26/2025 1:51 PM [facility] GFR >60 >=60 mL/min/1.7 3 sq meter 01/26/2025 1:51 PM [facility] Comment:eGFR calculated with 2020 CKD-EPI equation. Vegetarian diet, extremely high or low muscle mass, and may affect results. Cystatin C with Glomerular Filtration Rate is a suitable alternative for these patients. ANION GAP 9 5 - 20 mmol/L 01/26/2025 1:51 PM [facility] Blood 01/26/2025 1:15 PM CRYPTOGRAPHIC MACHINE OPERATOR 01/26/2025 1:28 PM CRYPTOGRAPHIC MACHINE OPERATOR Blossom Sarmiento TECHNICIAN TERMINAL AND REPEATER CHEMISTRY ORDERABLES Final Result [facility] CLIA # [id number] [address] [place] [address] * PSA (12/07/2024 10:51 AM CDT) PSA 3.24 < OR = 4.00 ng/mL [facility] Comment: The total PSA value from this assay system is standardized against the WHO standard. The test result will be approximately 20% lower when compared to the equimolar-standardized total PSA ([facility] [place]). Comparison of serial PSA results should be interpreted with this fact in mind. This test was performed using the Siemens chemiluminescent method. Values obtained from different assay methods cannot be used interchangeably. PSA levels, regardless of value, should not be interpreted as absolute evidence of the presence or absence of disease. Test Performed at: [facility] [address] [address] [address] Haleigh Esqueda MD Blood 12/07/2024 10:5 1 AM CDT 12/08/2024 3:01 AM CDT Jabari Lemon MD CHEMISTRY ORDERABLES Sonal l Result [facility] [phone] [facility] [address] [facility] [place] [address] * (ABNORMAL) LIPID PANEL (12/07/2024 10:51 AM CDT) CHOLESTEROL 230(H) <200 mg/dL [facility] HDL 53 > OR = 40 mg/dL [facility] TRIGLYCERIDE 98 <150 mg/dL [facility] LDL CALCULATED 156(H) mg/dL (calc) [facility] Comment: Reference range: <100 Desirable range <100 mg/dL for primary prevention; <70 mg/dL for patients with CHD or diabetic patients with > or = 2 CHD risk factors. LDL-C is now calculated using the Wilber-Hartley calculation, which is a validated novel method providing better accuracy than the Friedewald equation in the estimation of LDL-C. Wilber SS et al. MÓNICA. 2013;310(19): 5141-6824 (http://education.Yext.[employer]/faq/VIB696) CHOL/HDL RATIO 4.3 <5.0 (calc) [facility] NON-HDL CHOLESTEROL 177(H) <130 mg/dL (calc) [facility] Comment: For patients with diabetes plus 1 major ASCVD risk factor, treating to a non-HDL-C goal of <100 mg/dL (LDL-C of <70 mg/dL) is considered a therapeutic option. Test Performed at: [facility] [address] [facility] [place] [address] Haleigh Esqueda MD Blood 12/07/2024 10:5 1 AM CDT 12/08/2024 3:01 AM CDT Jabari Lemon MD CHEMISTRY ORDERABLES Sonal l Result [facility] [phone] [facility] [address] [address], [place] [address] from Last 3 Months Insurance [employer] [facility] SUPP MEDICARE PART A AND B Care Teams Field Crop Farmer Relationship Specialty Start Date End Date Jabari Lemon MD [address] [facility] [address] [place] [address] PCP - General Family Practice 12/26/15
--- OUTSIDE RECORDS SUMMARY | 2025-01-28 11:50 | XMS_ITS | Encounter Summary ---
Author Organization [facility] Address [address] [place] [address] Care Team Providers Care Residential Gas Heat Technician Name Role Phone Jabari Lemon MD Primary Care Provider [phone] Encounter Details Date Type Department Care Team (Late st Contact Info) Description 01/27/2025 Results Follow-Up [address] [address] Blossom Sarmiento FNP [address] [place] [phone] XR CERVICAL SPINE 2 OR 3 VIEWS Social History Tobacco Use Types Packs/Day Years Used Date Smoking Tobacco: Former Cigarettes Smokeless Tobacco: Never Alcohol Use Standard Drinks/Week Comments No 0 (1 standard drink = 0.6 oz pur e alcohol) Sex and Gender Information Value Date Recorded Sex Assigned at Not on file Legal Sex Male 11:50 PM IT AUDITOR Gender Identity Not on file Sexual Orientation Not on file documented as of this encounter Plan of Treatment Upcoming Encounters Date Type Department Care Team (Late st Contact Info) Description 08/26/2025 8:00 AM CDT Office Visit [address] [address] Jabari Lemon MD [address] [place] [phone] documented as of this encounter Visit Diagnoses Not on filedocumented in this encounter Care Teams Residential Gas Heat Technician Relationship Specialty Start Date End Date Jabari Lemon MD [address] [phone] PCP - General Family Practice 12/26/15 documented as of this encounter
--- OUTSIDE RECORDS SUMMARY | 2025-01-28 11:50 | XMS_ITS | Encounter Summary ---
Author Organization [facility] Address [address] [place] [address] Care Team Providers Care Hide Curer Name Role Phone Jabari Lemon MD Primary Care Provider [phone] Encounter Details Date Type Department Care Team (Late Contact Info) Description 01/26/2025 Lab Requisition [facility] Services [place] [address] [phone] Blossom Sarmiento FNP [address] [address] Cervicalgia Social History Tobacco Use Types Packs/Day Years Used Date Smoking Tobacco: Former Cigarettes Smokeless Tobacco: Never Alcohol Use Standard Drinks/Week Comments No 0 (1 standard drink = 0.6 oz pur e alcohol) Sex and Gender Information Value Date Recorded Sex Assigned at Not on file Legal Sex Male 11:50 PM VIDEO COORDINATOR Gender Identity Not on file Sexual Orientation Not on file documented as of this encounter Plan of Treatment Upcoming Encounters Date Type Department Care Team (Late st Contact Info) Description 08/26/2025 8:00 AM CDT Office Visit [facility] Medicine [place] [address] [address] Jabari Lemon MD [address] [phone] documented as of this encounter Procedures Procedure Name Priority Date/Time Associated Diagnosis Comments DIFFERENTIAL, MANUAL Stat 01/26/2025 1:15 PM VIDEO COORDINATOR Cervicalgia CBC WITH DIFFERENTIAL Stat 01/26/2025 1:15 PM VIDEO COORDINATOR Cervicalgia C-REACTIVE PROTEIN Stat 01/26/2025 1: 15 PM VIDEO COORDINATOR Cervicalgia COMPREHENSIVE METABOLIC PANEL Stat 01/26/2025 1:15 PM VIDEO COORDINATOR Cervicalgia documented in this encounter Results * MANUAL DIFFERENTIAL (01/26/2025 1:15 PM VIDEO COORDINATOR) [facility] PLATELET EST. Consistent w Count 01/26/2025 1:43 PM VIDEO COORDINATOR [facility] RBC MORPHOLOGY Normal 01/26/2025 1:43 PM VIDEO COORDINATOR [facility] Blood 01/26/2025 1:15 PM VIDEO COORDINATOR 01/26/2025 1:28 PM VIDEO COORDINATOR Narrative [facility] - 01/26/2025 1:43 PM VIDEO COORDINATOR Smear reviewed. Findings consistent with automated results. us Blossom Sarmiento [facility] HEMATOLOGY ORDERABLES COM Final Result Performing Organization Address City/[facility]/ZIP Co de Phone Number [facility] CLIA # [id number] [address] [place] [address] * (ABNORMAL) C-REACTIVE PROTEIN (01/26/2025 1:15 PM VIDEO COORDINATOR) [facility] CRP 46.4(H) <5.0 mg/L 01/26/2025 1:51 PM VIDEO COORDINATOR [facility] Blood 01/26/2025 1:15 PM VIDEO COORDINATOR 01/26/2025 1:28 PM VIDEO COORDINATOR us Blossom Sarmiento [facility] CHEMISTRY ORDERABLES Final Result Performing Organization Address City/[facility]/ZIP Co de Phone Number [facility] CLIA # [id number] [address] [place] [address] * (ABNORMAL) COMPREHENSIVE METABOLIC PANEL (01/26/2025 1:15 PM VIDEO COORDINATOR) SODIUM 133(L) 136 - 145 mmol/L 01/26/2025 1:51 PM [facility] POTASSIUM 3.9 3.5 - 5.1 mmol/L 01/26/2025 1:51 PM [facility] CHLORIDE 96(L) 98 - 107 mmol/L 01/26/2025 1:51 PM [facility] CO2 28 22 - 29 mmol/L 01/26/2025 1:51 PM [facility] CALCIUM 8.6(L) 8.8 - 10.2 mg/dL 01/26/2025 1:51 PM [facility] BUN 11 8 - 23 mg/dL 01/26/2025 1:51 PM [facility] CREATININE 1.17 0.67 - 1.17 mg/dL 01/26/2025 1:51 PM [facility] GLUCOSE 105(H) 74 - 99 mg/dL 01/26/2025 1:51 PM [facility] TOTAL PROTEIN 6.3(L) 6.6 - 8.7 g/dL 01/26/2025 1:51 PM [facility] ALBUMIN 3.9 3.5 - 5.2 g/dL 01/26/2025 1:51 PM [facility] BILIRUBIN TOTAL 0.7 0.0 - 1.2 mg/dL 01/26/2025 1:51 PM [facility] ALKALINE PHOSPHATASE 102 40 - 129 U/L 01/26/2025 1:51 PM [facility] AST 39 0 - 50 U/L 01/26/2025 1:51 PM [facility] ALT 42 0 - 50 U/L 01/26/2025 1:51 PM [facility] GFR >60 >=60 mL/min/1.7 3 sq meter 01/26/2025 1:51 PM [facility] Comment:eGFR calculated with 2020 CKD-EPI equation. Vegetarian diet, extremely high or low muscle mass, and may affect results. Cystatin C with Glomerular Filtration Rate is a suitable alternative for these patients. ANION GAP 9 5 - 20 mmol/L 01/26/2025 1:51 PM [facility] Blood 01/26/2025 1:15 PM VIDEO COORDINATOR 01/26/2025 1:28 PM VIDEO COORDINATOR Blossom Sarmiento [facility] CHEMISTRY ORDERABLES Final Result [facility] CLIA # [id number] [address] [place] [address] * (ABNORMAL) CBC WITH DIFFERENTIAL (01/26/2025 1:15 PM VIDEO COORDINATOR) WBC 3.6(L) 4.2 - 9.1 K/uL 01/26/2025 1:43 PM [facility] RBC 4.86 4.63 - 6.08 M/uL 01/26/2025 1:43 PM [facility] HEMOGLOBIN 13.8 13.7 - 17.5 g/dL 01/26/2025 1:43 PM [facility] HEMATOCRIT 40.1 40.1 - 51.0 % 01/26/2025 1:43 PM [facility] MCV 82.5 79.0 - 92.2 fL 01/26/2025 1:43 PM [facility] MCH 28.4 25.7 - 32.2 pg 01/26/2025 1:43 PM [facility] MCHC 34.4 32.3 - 36.5 g/dL 01/26/2025 1:43 PM [facility] RDW 12.7 11.0 - 14.5 % 01/26/2025 1:43 PM [facility] RDW-STDEV 38.6 36.9 - 56.9 fL 01/26/2025 1:43 PM [facility] PLATELETS 145 130 - 400 K/uL 01/26/2025 1:43 PM [facility] MPV 10.4 10.0 - 14.8 fL 01/26/2025 1:43 PM [facility] NEUTROPHILS 43 34 - 68 % 01/26/2025 1:43 PM [facility] LYMPHOCYTES 38 22 - 53 % 01/26/2025 1:43 PM [facility] MONOCYTES 13(H) 5 - 12 % 01/26/2025 1:43 PM [facility] EOSINOPHILS 0(L) 1 - 7 % 01/26/2025 1:43 PM [facility] BASOPHILS 1 0 - 1 % 01/26/2025 1:43 PM [facility] IMMATURE GRANULOCYTES 4 % 01/26/2025 1:43 PM [facility] NEUTROPHIL ABSOLUTE 1.57(L) 1.78 - 5.38 K/uL 01/26/2025 1:43 PM [facility] LYMPHOCYTE ABSOLUTE 1.38 1.20 - 3.40 K/uL 01/26/2025 1:43 PM [facility] MONOCYTE ABSOLUTE 0.48 0.30 - 0.82 K/uL 01/26/2025 1:43 PM [facility] EOSINOPHIL ABSOLUTE 0.01(L) 0.04 - 0.54 K/uL 01/26/2025 1:43 PM [facility] BASOPHILS ABSOLUTE 0.05 0.01 - 0.08 K/uL 01/26/2025 1:43 PM [facility] IMMATURE GRANULOCYTES ABSOLUTE 0.15 K/uL 01/26/2025 1:43 PM [facility] Blood 01/26/2025 1:15 PM VIDEO COORDINATOR 01/26/2025 1:28 PM VIDEO COORDINATOR Blossom Sarmiento [facility] HEMATOLOGY ORDERABLES Sonal l Result [facility] CLIA # [id number] [address] [address] documented in this encounter Visit Diagnoses Diagnosis Cervicalgia documented in this encounter Care Teams Hide Curer Relationship Specialty Start Date End Date Jabari Lemon MD [address] [phone] PCP - General Family Practice 12/26/15 documented as of this encounter
--- OUTSIDE RECORDS SUMMARY | 2025-01-28 11:50 | XMS_ITS | Encounter Summary ---
Author Organization [facility] Address [address] [place] [address] Care Team Providers Care Installation Helper Name Role Phone Jabari Lemon MD Primary Care Provider [phone] Reason for Visit * Reason Onset Date Comments Results 01/27/2025 Patient Communication Encounter Details Date Type Department Care Team (Latest Contact Info) Description 01/27/2025 Results Follow-Up [facility] Medicine [place] [address] [phone] Blossom Sarmiento, [facility] [address] [phone] CBC WITH DIFFERENTIAL, COMPREHENSIVE METABOLIC PANEL, C-REACTIVE PROTEIN, MANUAL DIFFERENTIAL Social History Tobacco Use Types Packs/Day Years Used Date Smoking Tobacco: Former Cigarettes Smokeless Tobacco: Never Alcohol Use Standard Drinks/Week Comments No 0 (1 standard drink = 0.6 oz pur e alcohol) Sex and Gender Information Value Date Recorded Sex Assigned at Not on file Legal Sex Male 11:50 PM MANAGER MAC Gender Identity Not on file Sexual Orientation Not on file documented as of this encounter Miscellaneous Notes * Telephone Encounter - Farnaz Sanders RN - 01/27/2025 11:52 AM MANAGER MAC 01/27/2025 11:52 AM Returned call and spoke with patient. Advised patient per provider: He needs to go to the ER based on his labs and his worsening symptoms. Voiced understanding. Farnaz MONACO GER MAC * Telephone Encounter - Skylar Duong - 01/27/2025 9:53 AM CST Copied from [facility] #[id number]. Topic: CPA Information Request >> Jan 27, 2025 9:48 AM Skylar Dahl wrote: Caller is returning phone call from clinic. Caller Name: PT Patient/Caregiver Callback Number: Telephone Information: Patient Has Additional Questions Are the credentials of the caregiver who talked to the patient data abstractor? No Call Notes: Patient/Caller requires a call back to discuss Called stating the pain is much worse and has a fever , is hot and cold and is asking for a call back , he is asking for some medication to help with a possible infection GER MAC * Telephone Encounter - Farnaz Sanders RN - 01/27/2025 9:17 AM MANAGER MAC 01/27/2025 9:17 AM No answer. Left voice mail/message that communication regarding results can be accessed via [employer] . No need to return call unless specific questions. If patient/caregiver calls back, contact center may tell caller Labs do show some evidence of moderate inflammation. White count is slightly low as is calcium and sodium. These are all a bit vague. Is the pain any better or worse today? Xray did show slipped vertebra and degenerative changes. Farnaz MONACO GER MAC * Telephone Encounter - Farnaz Sanders RN - 01/27/2025 9:16 AM MANAGER MAC ----- Message from Blossom Sarmiento sent at 01/27/2025 9:04 AM MANAGER MAC ----- Labs do show some evidence of moderate inflammation. White count is slightly low as is calcium and sodium. These are all a bit vague. Is the pain any better or worse today? Xray did show slipped vertebra and degenerative changes. ----- Message ----- From: [facility], Background Sent: 01/26/2025 1:43 PM MANAGER MAC To: OKSANA Cardozo GER MAC documented in this encounter Plan of Treatment Upcoming Encounters Date Type Department Care Team (Late st Contact Info) Description 08/26/2025 8:00 AM CDT Office Visit [facility] [address] [phone] Jabari Lemon MD [address] [phone] documented as of this encounter Visit Diagnoses Not on filedocumented in this encounter Care Teams Installation Helper Relationship Specialty Start Date End Date Jabari Lemon MD [address] [phone] PCP - General Family Practice 12/26/15 documented as of this encounter
--- OUTSIDE RECORDS SUMMARY | 2025-01-28 11:50 | XMS_ITS | Encounter Summary ---
Author Organization [facility] Address [address] [place] [address] Care Team Providers Care Exercise Scientist Name Role Phone Jabari Lemon MD Primary Care Provider [phone] [phone] Reason for Referral * Medication Prior Authorization - Pending Review Specialty Diagnoses / Procedures Referred By Harsh moore Referred To Contact Diagnoses Neck pain Blossom Sarmiento FNP [address] [place] [phone] Phone: tel: fax: Referral ID Status Reason Start Date Expiration Date V isits Requested Visits Authorized [id number] Pending Review 1 1 R Reason for Visit * Reason Comments Medication Refill Encounter Details Date Type Department Care Team (Late st Contact Info) Description 01/27/2025 Telephone [facility] [address] [phone] Blossom Sarmiento FNP [address] [place] [phone] Medication Refill Social History Tobacco Use Types Packs/Day Years Used Date Smoking Tobacco: Former Cigarettes Smokeless Tobacco: Never Alcohol Use Standard Drinks/Week Comments No 0 (1 standard drink = 0.6 oz pur e alcohol) Sex and Gender Information Value Date Recorded Sex Assigned at Not on file Legal Sex Male 11:50 PM BALER Gender Identity Not on file Sexual Orientation Not on file documented as of this encounter Miscellaneous Notes * Telephone Encounter - Farnaz Sanders RN - 01/27/2025 3:31 PM BALER 01/27/2025 3:31 PM Returned call and spoke with patient. Patient states that the Rx sent in on 01/26 did not go to thepharmacy. It looks like it was waiting on a prior authorization from the insurance. Patient is wanting to just pay hopkins. Resent prescription for Flexeril 3 tablets to [facility]. Farnaz RN R * Telephone Encounter - Keisha Garcia - 01/27/2025 3:25 PM CST Copied from [facility] #[id number]. Topic: Medication Request >> Jan 27, 2025 3:20 PM Keisha Salinas wrote: Caller Name: Aníbal Callback Number: [phone] Medication (Ask patient/caregiver to spell if possible): cyclobenzaprine (FLEXERIL) 5 mg Tablet Note: All medication prescriptions can be requested using one [facility] Preferred Pharmacy: [facility] [address] [place] [address] [place] [address] [address] Call Notes: Caller is checking the status of a prescription request sent on date 01/26/25. Patient said his portal says this has not been sent and he checked with pharmacy and they don't have. Patientis requesting Farnaz to resend this today. Review the medication to determine if prescription has been sent to the pharmacy. Has the prescription been sent to the pharmacy? No, less than 48 hours since prescription request sent to clinic but patient requesting a message be sent Is there an encounter open? No R documented in this encounter Plan of Treatment Upcoming Encounters Date Type Department Care Team (Late st Contact Info) Description 08/26/2025 8:00 AM CDT Office Visit [facility] [place] [address] [address] Jabari Lemon MD [address] [phone] documented as of this encounter Visit Diagnoses Diagnosis Neck pain Cervicalgia documented in this encounter Care Teams Exercise Scientist Relationship Specialty Start Date End Date Jabari Lemon MD [address] [phone] PCP - General Family Practice 12/26/15 documented as of this encounter
--- NOTE | 2025-01-28 11:53 | W.ED.RECABL ---
HPI - Recheck/Abnormal Lab/Rx General: Chief Complaint: Recheck/Abnormal Lab/Rx Stated Complaint: Neck Pain going down to shoulders Time Seen by Provider: 01/28/25 11:53 History of Present Illness: 64-year-old man who presents emergency room with complaint of labs being abnormal. He is unsure which it was he thinks maybe his CRP was elevated. He says his doctor told him to go to the emergency room. He says for several weeks now has had some generalized weakness and muscle aches in his neck and his right shoulder and side. No documented fevers but he does say he has had chills and sweats. He did take some ibuprofen today Related Data Home Medications ?Medication ?Instructions ?Recorded ?Confirmed alprazolam 0.5 mg tablet 0.5 mg PO TID PRN Anxiety 01/28/25 01/28/25 citalopram 20 mg tablet 20 mg PO DAILY 01/28/25 01/28/25 dorzolamide 22.3 mg-timolol 6.8 1 drp ophthalmic (eye) BID 01/28/25 01/28/25 mg/mL eye drops ibuprofen 200 mg tablet 800 mg PO Q6H PRN Pain 01/28/25 01/28/25 Previous Rx's ?Medication ?Instructions ?Recorded dexamethasone 6 mg tablet 6 mg PO DAILY 5 days #5 tabs 01/28/25 doxycycline monohydrate 100 mg 100 mg PO BID 10 days #20 caps 01/28/25 capsule Allergies Allergy/AdvReac Type Severity Reaction Status Date / Time No Known Allergies Allergy Verified 01/28/25 11:52 Review of Systems Narrative: Constitutional symptoms: Negative except as documented in HPI. Skin symptoms: Negative except as documented in HPI. Eye symptoms: Negative except as documented in HPI. ENMT symptoms: Negative except as documented in HPI. Respiratory symptoms: Negative except as documented in HPI. Cardiovascular symptoms: Negative except as documented in HPI. Gastrointestinal symptoms: Negative except as documented in HPI. Genitourinary symptoms: Negative except as documented in HPI. Musculoskeletal symptoms: Negative except as documented in HPI. Neurologic symptoms: Negative except as documented in HPI. Psychiatric symptoms: Negative except as documented in HPI. Endocrine symptoms: Negative except as documented in HPI. Physical Exam Narrative: EXAM NARRATIVE: General: Alert, no acute distress. Skin: Warm, dry. Head: Normocephalic, atraumatic. Neck: Supple, trachea midline. Eye: Extraocular movements are intact. Ears, nose, mouth and throat: mucosa moist. Cardiovascular: Regular, Normal peripheral perfusion. Respiratory: Lungs are clear to auscultation, respirations are non-labored, breath sounds are equal, Symmetrical chest wall expansion. Gastrointestinal: Soft, Nontender, Non distended Musculoskeletal: Normal ROM, no deformity. Neurological: Alert and oriented, No focal neurological deficit observed. Psychiatric: Cooperative, appropriate mood & affect. Course Vital Signs: Vital signs: Vital Signs Temperature 98.1 F 01/28/25 11:46 Pulse Rate 82 01/28/25 13:16 Respiratory Rate 16 01/28/25 13:16 Blood Pressure 106/67 01/28/25 13:16 Pulse Oximetry 96 01/28/25 13:16 Oxygen Delivery Me thod Room Air 01/28/25 13:16 MDM - Recheck/Abnormal Lab/Rx Medical Decision Making Medical decision making: Patient's reason for coming to the emergency room: Malaise, sweats, weakness Social determinants patient is retired I reviewed the patient's medical record. Patient's only other visit to this facility was to dermatology a few years back Differential diagnosis for patient presenting with generalized weakness including but not limited to and based on the above HPI, review of systems and physical exam: Sepsis. Dehydration. Renal failure. Electrolyte abnormalities. Anemia. Congestive heart failure. Hypotension. Coronary syndrome. Hepatitis. Cirrhosis. Infections such as pneumonia, urinary tract infection, Tick bourne illness, Cellulitis, Viral infections including influenza and Covid-19. Workup: labwork and lab/exam driven imaging ordered to evaluate, rule in and rule out above pathologies. EKG: Time 12:12. Rate 89 normal sinus rhythm, No ST-T changes, no ectopy, normal CT & QRS intervals, This was reviewed and interpreted by myself the ER physician at 12:15 Chest x-ray: No acute process. No infiltrate. No pneumothorax. This was reviewed and interpreted by myself the emergency room physician. I also reviewed the radiology report. Lab Review: Laboratory results were reviewed and interpreted by myself the emergency room physician. No leukocytosis white count is actually little bit low. Hemoglobin normal. Platelets are little low and sodium is a little low. This could lend towards a tickborne illness. Will place him on doxycycline. Also with the CRP being up could be related to this or could be an inflammatory type process so going to place him on some steroids for little while Assessment of risk: Level of risk: Low risk patient Hospitalization considerations: No consideration of hospitalization today Reexamination: Patient remained stable. No increased work of breathing. No altered mental status. No focal motor deficits. Assessment and plan: Generalized weakness Malaise Elevated CRP Possible tickborne illness ?Home on doxycycline and dexamethasone - Discharged home - Discussed plan with patient. Answered any questions. - Evaluation and treatment of this problem were appropriate in the emergency setting. Lab Data 01/28/25 12:07 01/28/25 12:07 Radiology Impressions Chest X-Ray 01/28/25 11:57 IMPRESSION: No acute findings. Laboratory Results WBC 4.23 10^3/uL (3.29-11.43) 01/28/25 12:07 RBC 5.22 10^6/uL (3.85-5.65) 01/28/25 12:07 Hgb 14.70 g/dL (11.27-16.99) 01/28/25 12:07 Hct 43.2 % (37-53) 01/28/25 12:07 MCV 82.8 fl (82-101) 01/28/25 12:07 MCH 28.2 pg (27-33) 01/28/25 12:07 MCHC 34.0 g/dL (30-55) 01/28/25 12:07 RDW 12.6 % (12.1-15.1) 01/28/25 12:07 Plt Count 142 10^3/cmm (157-399) L 01/28/25 12:07 MPV 10.3 fL (7.4-10.4) 01/28/25 12:07 Neut % (Auto) 63.4 % 01/28/25 12:07 Lymph % (Auto) 24.1 % 01/28/25 12:07 Young % (Auto) 8.0 % 01/28/25 12:07 Eos % (Auto) 0.0 % 01/28/25 12:07 Baso % (Auto) 0.5 % 01/28/25 12:07 Neut # (Auto) 2.68 10^3/uL (1.8-7.7) 01/28/25 12:07 Lymph # (Auto) 1.0 10^3/uL (0.8-4.8) 01/28/25 12:07 Young # (Auto) 0.3 10^3/uL (0.2-0.9) 01/28/25 12:07 Eos # (Auto) 0.0 10^3/uL (0.0-0.8) 01/28/25 12:07 Baso # (Auto) 0.0 10^3/uL (0.0-0.1) 01/28/25 12:07 Nucleated RBC % (auto) 0 % 01/28/25 12:07 Nucleated RBCs # 0.0 /100WBC 01/28/25 12:07 Sodium 133 mmol/L (136-145) L 01/28/25 12:07 Potassium 4.5 mmol/L (3.5-5.1) 01/28/25 12:07 Chloride 99 mmol/L (98-107) 01/28/25 12:07 Carbon Dioxide 20 mmol/L (22-29) L 01/28/25 12:07 Anion Gap 18.5 (5-19) 01/28/25 12:07 BUN 11 mg/dL (8-23) 01/28/25 12:07 Creatinine 0.8 mg/dL (0.7-1.2) 01/28/25 12:07 GFR Calculation 97.0 mL/min (90-130) 01/28/25 12:07 Glucose 106 mg/dL (65-115) 01/28/25 12:07 Calculated Osmolality 276 mOsm/kg (285-295) L 01/28/25 12:07 Lactic Acid 1.5 mmol/L (0.5-2.2) 01/28/25 12:07 Calcium 8.4 mg/dL (8.5-10.5) L 01/28/25 12:07 Total Bilirubin 0.6 mg/dL (0.15-1.2) 01/28/25 12:07 AST 32 U/L (0-40) 01/28/25 12:07 ALT 39 U/L (0-41) 01/28/25 12:07 Alkaline Phosphatase 109 U/L (40-130) 01/28/25 12:07 C-Reactive Protein 39.1 mg/L (0.0-4.9) H 01/28/25 12:07 Total Protein 6.4 g/dL (6.6-8.7) L 01/28/25 12:07 Albumin 3.8 g/dL (3.5-5.2) 01/28/25 12:07 Globulin 2.6 g/dL (1.3-4.6) 01/28/25 12:07 Urine Color Dark yellow (Yellow) A 01/28/25 12:23 Urine Appearance Clear (CLEAR) 01/28/25 12:23 Urine pH 5.5 (5-7) 01/28/25 12:23 Ur Specific [place] 1.019 (1.005-1.030) 01/28/25 12:23 Urine Protein 1+ (Negative) A 01/28/25 12:23 Urine Glucose (UA) Negative (Normal) 01/28/25 12:23 Urine Ketones Trace (Negative) 01/28/25 12:23 Urine Blood Negative (Negative) 01/28/25 12:23 Urine Nitrate Negative (Negative) 01/28/25 12:23 Urine Bilirubin Negative (Negative) 01/28/25 12:23 Urine Urobilinogen 1.0 mg/dL (Negative) 01/28/25 12:23 Ur Leukocyte Esterase Trace (Negative) A 01/28/25 12:23 Urine RBC 0-2 /hpf (0-2) 01/28/25 12:23 Urine WBC 0-5 /hpf (0-5) 01/28/25 12:23 Ur Squamous Epith Cells 0-5 /hpf (0-5) 01/28/25 12:23 Amorphous Sediment Not Reportable 01/28/25 12:23 Urine Bacteria None seen /hpf (NONE) 01/28/25 12:23 Hyaline Casts 7.01 /lpf 01/28/25 12:23 Influenza A (PCR) Cancelled 01/28/25 12:10 Influenza Type B (PCR) Cancelled 01/28/25 12:10 RSV (PCR) Cancelled 01/28/25 12:10 SARS-CoV-2 (PCR) Cancelled 01/28/25 12:10 All radiology interpretation(s) finalized by discharge Discharge Plan Discharge Patient Disposition: Home Clinical Impression: Generalized weakness, Elevated C-reactive protein Condition: Stable Prescriptions: New dexamethasone 6 mg tablet 6 mg PO DAILY 5 Days Qty: 5 0RF doxycycline monohydrate 100 mg capsule 100 mg PO BID 10 Days Qty: 20 0RF Discharge Orders: Discharge ED (Routine); Ordered 01/28/25 Ordered By: Marion Johnson Referrals: Jabari Lemon [Primary Care Provider, Family Practice] Discharge Diet: Usual diet Discharge Activity: Increase activity as tolerated Patient Instructions: Opioid Safety, Pain Management, Patient Portal & Paulie Instructions Activity Restrictions/Additional Instructions: Thank you for choosing [facility] for your healthcare needs today. You have been screened and evaluated and felt safe for discharge. Health conditions do change or evolve sometimes and as such it is important that you follow up with your Primary Doctor to be re checked, 3-5 days is a general good time frame for follow up. You are always welcome to return to the ED for re assessment if your symptoms are worsening or you have new concerns Print Language: Frisian Coding Level of Care Code ED Microbiology Laboratory Manager for Erik Hobbs
--- NOTE | 2025-01-28 11:57 | XRR_ITS ---
PROCEDURE INFORMATION: Exam: XR Chest Exam date and time: 01/28/2025 11:56 AM Age: 64 years old Clinical indication: Other: Weakness TECHNIQUE: Imaging protocol: Radiologic exam of the chest. Views: 1 view. COMPARISON: No relevant prior studies available. FINDINGS: Lungs: Unremarkable. No consolidation. Pleural spaces: Unremarkable. No pleural effusion. No pneumothorax. Heart/Mediastinum: Unremarkable. No cardiomegaly. Bones/joints: Unremarkable. XR/XR chest 1V portable [id number] IMPRESSION: No acute findings.
--- NOTE | 2025-01-28 11:57 | ECG_ITS ---
[facility] Date: 2025-01-28 Pat Name: Aníbal Prakash Department: Room: Gender: Male Application Internship: : 1960 Requested By: Marion Yost Order Number: [id number] Abigail MD: Indiana Petit M.D. Measurements Intervals [place] Rate: 89 P: 36 UT: 148 QRS: 31 QRSD: 96 T: 14 QT: 367 QTc: 447 Interpretive Statements SINUS RHYTHM NONSPECIFIC T-WAVE ABNORMALITY No previous ECG available for comparison Electronically Signed On 01-30-2025 13:01:41 [employer] by Indiana Petit M.D. [email or web address]
[2025-01-28 12:19] LABS: Hematocrit 43.2 % (37-53); Hemoglobin 14.70 g/dL (11.27-16.99); Mean Corpuscular HGB Conc 34.0 g/dL (30-55); Mean Corpuscular Hemoglobin 28.2 pg (27-33); Mean Corpuscular Volume 82.8 fl (82-101); Nucleated Red Blood Cells % 0 %; Platelet Count 142 10^3/cmm (157-399); Red Blood Count 5.22 10^6/uL (3.85-5.65); White Blood Count 4.23 10^3/uL (3.29-11.43)
[2025-01-28 12:42] LABS: Alanine Aminotransferase 39 U/L (0-41); Albumin Level 3.8 g/dL (3.5-5.2); Alkaline Phosphatase 109 U/L (40-130); Blood Urea Nitrogen 11 mg/dL (8-23); Calcium 8.4 mg/dL (8.5-10.5); Carbon Dioxide 20 mmol/L (22-29); Chloride 99 mmol/L (98-107); Creatinine Clr Calc Pharmacy 99.5557; Globulin 2.6 g/dL (1.3-4.6); Glucose 106 mg/dL (65-115); Lactic Sepsis W/Reflex 1.5 mmol/L (0.5-2.2); Osmolality Calculated 276 mOsm/kg (285-295); Sodium 133 mmol/L (136-145); Total Protein 6.4 g/dL (6.6-8.7)
[2025-01-28 12:43] LABS: Anion Gap 18.5 (5-19); Aspartate Amino Transferase 32 U/L (0-40); Potassium 4.5 mmol/L (3.5-5.1)
[2025-01-28 12:47] LABS: Slide Review Slide Review Perform
[2025-01-28 13:02] LABS: Glucose Urine UA Negative (Normal); Nitrate Urine Negative (Negative); Specific Gravity, Urine 1.019 (1.005-1.030)
[2025-01-28 13:16] VITALS: BP 106/67; PULSE 82; RESP 16; O2SAT 96
[2025-01-28 13:43] VITALS: BP 106/67; PULSE 81; O2SAT 97
== END 2025-01-28 13:44 | disposition home or self-care (01) ==
PROVIDERS: Emergency Provider Emergency Medicine; PCP Family Medicine
DX: R53.1 Weakness (principal); Z11.52 Encounter for screening for COVID-19; R79.82 Elevated C-reactive protein (CRP)
CPT/HCPCS: 36415; 71045; 80053; 81001; 83605; 85025; 86140; 87040; 93005; 99285